=== PATIENT | female | born 1995 | race Two or more races ===

== ENCOUNTER 2023-03-18 10:20 | Emergency (ER) | payer OTHER ==
[~2023-03-18] VITALS: Ht 160 cm; Wt 68.0 kg
[2023-03-18 12:01] LABS: HEMATOCRIT 37.2 % (36.0-45.00); HEMOGLOBIN 12.7 g/dL (12.0-15.00); MEAN CELL VOLUME 87.5 fL (80.00-100.00); MEAN CORPUSCULAR HEMOGLOBIN 29.8 pg (27.00-32.0); MEAN CORPUSCULAR HGB CONC 34.1 g/dl (32.0-36.0); PLATELET COUNT 290 K/uL (150-450); RED BLOOD COUNT 4.26 M/uL (4.00-6.00); RED CELL DISTRIBUTION WIDTH 13.2 % (11.5-14.5)
== END 2023-03-18 15:29 | disposition home or self-care (01) ==
LOC: ER 10:21
PROVIDERS: Emergency Medicine
DX: O20.9 Hemorrhage in early pregnancy, unspecified (principal); Z3A.10 10 weeks gestation of pregnancy; Z88.6 Allergy status to analgesic agent

== ENCOUNTER 2023-04-06 13:28 | Outpatient (CLI) | payer OTHER | END 2023-04-06 13:32 | disposition home or self-care (01) | LOC: PRENATAL 13:28 | PROVIDERS: ATTEND Obstetrics & Gynecology Maternal & Fetal Medicine | DX: O36.80X0 Pregnancy with inconclusive fetal viability, not applicable or unspecified (principal); Z36.82 Encounter for antenatal screening for nuchal translucency; Z36.9 Encounter for antenatal screening, unspecified; Z14.8 Genetic carrier of other disease; Z3A.12 12 weeks gestation of pregnancy ==

== ENCOUNTER 2023-04-11 12:15 | Emergency (ER) | payer OTHER ==
[~2023-04-11] VITALS: Ht 160 cm; Wt 68.9 kg
[2023-04-11] MEDS ORDERED: PROMETRIUM200 MG PO (13:17)
[2023-04-11] MEDS ORDERED: PRENATAL + DHA1 EAC1 PO (13:17)
[2023-04-11 14:55] LABS: PH,URINE 6.5 (5.0-8.0); URINE APPEARANCE Cloudy; URINE BILIRRUBIN Negative (NEGATIVE); URINE BLOOD Small; URINE COLOR Dark Yellow; URINE GLUCOSE Negative (NEGATIVE); URINE LEUKOCYTE Trace; URINE NITRATE Negative; URINE PROTEIN Trace (NEGATIVE)
[2023-04-11 14:58] LABS: URINE BACTERIA 1104.9 uL (0.0-1933); URINE EPITHELIAL CELLS 126.1 uL (0.0-38.8); URINE RBC 41.8 uL (0.0-20.8); URINE WBC 25.3 uL (0.0-23.2)
[2023-04-11 15:15] LABS: HEMATOCRIT 37.5 % (36.0-45.00); MEAN CORPUSCULAR HEMOGLOBIN 30.6 pg (27.00-32.0); MEAN CORPUSCULAR HGB CONC 34.7 g/dl (32.0-36.0); PLATELET COUNT 254 K/uL (150-450); RED BLOOD COUNT 4.26 M/uL (4.00-6.00); RED CELL DISTRIBUTION WIDTH 13.8 % (11.5-14.5)
[2023-04-11 16:01] LABS: CALCIUM 9.3 mg/dL (8.5-10.1); CREATININE SERUM 0.58 mg/dL (0.55-1.02); GFR 122.91; POTASSIUM 4.1 mEq/L (3.5-5.1)
== END 2023-04-11 16:56 | disposition home or self-care (01) ==
LOC: ER 12:16
PROVIDERS: General Practice
DX: K52.89 Other specified noninfective gastroenteritis and colitis (principal); R11.10 Vomiting, unspecified; Z20.822 Contact with and (suspected) exposure to COVID-19; Z88.6 Allergy status to analgesic agent

== ENCOUNTER 2023-05-31 10:40 | Outpatient (CLI) | payer OTHER ==
[~2023-05-31 10:40] MED LIST: PRENATAL + DHA1 EAC1 PO; PROMETRIUM200 MG PO
== END 2023-05-31 10:41 | disposition home or self-care (01) ==
LOC: PRENATAL 10:40
PROVIDERS: ATTEND Obstetrics & Gynecology Maternal & Fetal Medicine
DX: O35.3XX0 Maternal care for (suspected) damage to fetus from viral disease in mother, not applicable or unspecified (principal); O44.00 Complete placenta previa NOS or without hemorrhage, unspecified trimester; O26.879 Cervical shortening, unspecified trimester; Z3A.20 20 weeks gestation of pregnancy

== ENCOUNTER 2023-06-03 06:27 | Day surgery (SDC) | payer OTHER ==
[~2023-06-03] VITALS: Ht 160 cm; Wt 68.5 kg
[2023-06-03] MEDS ORDERED: RINGERS SOLUTION,LACTATED 1,000 ML IV SCH (06:45)
[2023-06-03] MEDS ORDERED: CEFAZOLIN SODIUM 1,000 MG VIAL IV SCH (06:45)
[2023-06-03 07:49] LABS: HEMATOCRIT 38.1 % (36.0-45.00); MEAN CELL VOLUME 88.9 fL (80.00-100.00); MEAN CORPUSCULAR HEMOGLOBIN 30.3 pg (27.00-32.0); MEAN CORPUSCULAR HGB CONC 34.1 g/dl (32.0-36.0); PLATELET COUNT 245 K/uL (150-450); RED BLOOD COUNT 4.28 M/uL (4.00-6.00)
[2023-06-03 07:50] LABS: PH,URINE 5.5 (5.0-8.0); URINE APPEARANCE Turbid; URINE BILIRRUBIN Small (NEGATIVE); URINE BLOOD Negative; URINE COLOR Dark Yellow; URINE GLUCOSE Negative (NEGATIVE); URINE LEUKOCYTE Small; URINE NITRATE Negative; URINE PROTEIN Trace (NEGATIVE)
[2023-06-03 07:58] LABS: URINE BACTERIA 4426.3 uL (0.0-1933); URINE RBC 126.6 uL (0.0-20.8); URINE WBC 146.4 uL (0.0-23.2)
[2023-06-03 08:28] LABS: ALBUMIN 3.2 gm/dL (3.4-5.0); BILIRUBIN TOTAL 0.38 mg/dL (0.3-1.2); CALCIUM 9.3 mg/dL (8.5-10.1); CREATININE SERUM 0.59 mg/dL (0.55-1.02); GFR 120.5; POTASSIUM 4.28 mEq/L (3.5-5.1); TOTAL PROTEIN 7.2 gm/dL (6.4-8.2)
[2023-06-03 08:29] LABS: URINE EPITHELIAL CELLS > 201.7 uL (0.0-38.8)
[2023-06-03 09:06] LABS: INR 0.95; PARTIAL THROMBOPLASTIN TIME 27.3 SECONDS (22.0-34.0)
[2023-06-03] MEDS ORDERED: METRONIDAZOLE/SODIUM CHLORIDE 500 MG/100 ML PIGGYBACK IV SCH (11:12)
[2023-06-03] MEDS ORDERED: POVIDONE-IODINE 118 ML BOTT TOP ONE (14:02)
[2023-06-03] MEDS ORDERED: CEPHALEXIN500 MG PO (20:25)
== END 2023-06-03 21:50 | disposition home or self-care (01) ==
LOC: LDR 06:27 → O/R 06:27 → CIR.AMB 06:27 → O/R 13:50 → LDR 13:50 → EDSTATUS 15:30 → OB/GYN 16:57 → O/R 16:57 → OB/GYN 16:57 → O/R 17:56 → CIR.AMB 21:50 → O/R 21:50
PROVIDERS: ATTEND Obstetrics & Gynecology
DX: O34.32 Maternal care for cervical incompetence, second trimester (principal); Z3A.21 21 weeks gestation of pregnancy; O26.872 Cervical shortening, second trimester

== ENCOUNTER 2023-06-16 09:06 | Outpatient (CLI) | payer OTHER ==
[~2023-06-16 09:06] MED LIST changes: +CEPHALEXIN500 MG PO
== END 2023-06-16 09:07 | disposition home or self-care (01) ==
LOC: PRENATAL 09:06
PROVIDERS: ATTEND Obstetrics & Gynecology Maternal & Fetal Medicine
DX: O26.879 Cervical shortening, unspecified trimester (principal); Z3A.22 22 weeks gestation of pregnancy

== ENCOUNTER 2023-06-28 09:43 | Outpatient (CLI) | payer OTHER | END 2023-06-28 09:44 | disposition home or self-care (01) | LOC: PRENATAL 09:43 | PROVIDERS: ATTEND Obstetrics & Gynecology Maternal & Fetal Medicine | DX: O26.849 Uterine size-date discrepancy, unspecified trimester (principal); O26.879 Cervical shortening, unspecified trimester; Z3A.24 24 weeks gestation of pregnancy ==

== ENCOUNTER → 2023-07-27 15:38 | Outpatient (CLI) | payer OTHER | END | disposition home or self-care (01) | LOC: PRENATAL 15:38 | PROVIDERS: ATTEND Obstetrics & Gynecology Maternal & Fetal Medicine | DX: O26.849 Uterine size-date discrepancy, unspecified trimester (principal); O26.879 Cervical shortening, unspecified trimester; Z3A.28 28 weeks gestation of pregnancy ==

== ENCOUNTER 2024-10-12 08:32 | Emergency (ER) | payer OTHER ==
[~2024-10-12] VITALS: Ht 160 cm; Wt 68.0 kg
[~2024-10-12 08:32] MED LIST changes: +SURFAK240 M1 PO
[2024-10-12] MEDS ORDERED: 0.9 % SODIUM CHLORIDE 1,000 ML IV STA (09:09)
[2024-10-12 09:57] LABS: BASO % 0.2 % (0.1-1.2); EOS # 0.09 (0.04-0.54); EOS % 0.9 % (0.7-7.0); LYMPH # 2.52 (1.18-3.74); LYMPH % 24.3 % (19.3-53.1); MEAN CORPUSCULAR HEMOGLOBIN 28.6 pg (25.6-32.2); MONO # 0.86 (0.24-0.82); MONO % 8.3 % (4.7-12.5); NEUT # 6.85 (1.56-6.13); PLATELET COUNT 352 K/uL (163-369); RED BLOOD COUNT 5.25 M/uL (3.93-5.22); RED CELL DISTRIBUTION WIDTH 12.8 % (11.6-14.4)
[2024-10-12 10:32] LABS: CALCIUM 9.9 mg/dL (8.5-10.1); CREATININE SERUM 0.87 mg/dL (0.55-1.02); GFR 76.45; POTASSIUM 3.69 mEq/L (3.5-5.1)
== END 2024-10-12 15:46 | disposition home or self-care (01) ==
LOC: ER 08:43
PROVIDERS: Emergency Medicine
DX: K52.89 Other specified noninfective gastroenteritis and colitis (principal); R11.10 Vomiting, unspecified; Z88.6 Allergy status to analgesic agent; Z91.013 Allergy to seafood